=== PATIENT | female | born 1995 | race Caucasian/White ===

== ENCOUNTER 2017-07-14 19:50 | Emergency (ER) | payer OTHER ==
[2017-07-14 21:07] LABS: ADD MAN DIFF? NO
[2017-07-14 21:10] LABS: WHITE BLOOD COUNT 10.6 10^3/ul (4.8-10.8)
[2017-07-14 21:10] LABS: BASOPHILS % 0.3 % (0.0-2.0); EOSINOPHILS # 0.2 10^3/ul (0.0-0.5); EOSINOPHILS % 1.4 % (0.0-7.0); HEMATOCRIT 41.4 % (37.0-47.0); HEMOGLOBIN 14.4 g/dl (12.0-16.0); LYMPHOCYTES # 3.3 10^3/ul (0.8-2.9); LYMPHOCYTES % 30.8 % (18.0-55.0); MEAN CORPUSCULAR HEMOGLOBIN 30.8 pg (29.0-33.0); MEAN CORPUSCULAR HGB CONC 34.8 g/dl (32.0-37.0); MEAN CORPUSCULAR VOLUME 88.7 fl (72.0-104.0); MONOCYTE # 0.7 10^3/ul (0.3-0.9); MONOCYTES % 6.4 % (0.0-13.0); NEUTROPHIL # 6.5 10^3/ul (1.6-7.5); NEUTROPHILS % 60.8 % (30.0-74.0); PLATELET COUNT 203 10^3/UL (140-415); RED BLOOD COUNT 4.67 10^6/ul (4.20-5.40)
[2017-07-14 21:26] LABS: ADD UMIC YES; UR ASCORBIC ACID NEGATIVE (NEGATIVE); UR BILIRUBIN (Dip) NEGATIVE (NEGATIVE); UR BLOOD (Dip) 3+ mg/dL (NEGATIVE); UR CLARITY SLIGHTLY CLOUDY (CLEAR); UR COLOR YELLOW (YELLOW); UR GLUCOSE (Dip) NEGATIVE (NEGATIVE); UR KETONES (Dip) TRACE mg/dL (NEGATIVE); UR LEUKOCYTE ESTERASE (Dip) TRACE Leu/ul (NEGATIVE); UR NITRITE (Dip) NEGATIVE (NEGATIVE); UR RBC 182 /HPF (0-5); UR SPECIFIC GRAVITY (Dip) 1.025 (1.003-1.030); UR SQUAMOUS EPITHELIAL CELL FEW /HPF (FEW); UR TOTAL PROTEIN (Dip) 1+ mg/dl (NEGATIVE); UR UROBILINOGEN (Dip) NEGATIVE (NEGATIVE); UR WBC 13 /HPF (0-5)
[2017-07-14] MEDS: LIDOCAINE 1% (MDV) 10 ML INJ INFIL (21:49)
[2017-07-14] MEDS: CEFTRIAXONE 1 GM INJ IM (21:49)
[2017-07-14] MEDS: ONDANSETRON (ODT) 4 MG TAB ODT (22:14)
== END 2017-07-14 23:54 | disposition home or self-care (01) ==
LOC: FTE 19:50
DX: O23.41 Unspecified infection of urinary tract in pregnancy, first trimester (principal); R10.2 Pelvic and perineal pain; Z3A.12 12 weeks gestation of pregnancy
CPT/HCPCS: 36415; 76801; 81001; 84702; 85025; 86900; 86901; 96372; 99285-25

== ENCOUNTER 2018-01-22 18:44 | Outpatient (CLI) | payer OTHER ==
[2018-01-22 21:19] LABS: ADD UMIC YES; UR ASCORBIC ACID NEGATIVE (NEGATIVE); UR BILIRUBIN (Dip) NEGATIVE (NEGATIVE); UR BLOOD (Dip) NEGATIVE (NEGATIVE); UR CALCIUM OXALATE CRYSTAL MANY /HPF (NONE SEEN); UR CLARITY CLOUDY (CLEAR); UR COLOR YELLOW (YELLOW); UR GLUCOSE (Dip) NEGATIVE (NEGATIVE); UR KETONES (Dip) NEGATIVE (NEGATIVE); UR LEUKOCYTE ESTERASE (Dip) TRACE Leu/ul (NEGATIVE); UR NITRITE (Dip) NEGATIVE (NEGATIVE); UR RBC 1 /HPF (0-5); UR SPECIFIC GRAVITY (Dip) 1.032 (1.003-1.030); UR SQUAMOUS EPITHELIAL CELL MODERATE /HPF (FEW); UR TOTAL PROTEIN (Dip) 1+ mg/dl (NEGATIVE); UR UROBILINOGEN (Dip) 1+ mg/dL (NEGATIVE); UR WBC 6 /HPF (0-5)
== END 2018-01-22 21:05 | disposition home or self-care (01) ==
LOC: OBT 18:44 → L-D 18:45 → OBT 21:05
DX: O48.0 Post-term pregnancy (principal); Z3A.40 40 weeks gestation of pregnancy
CPT/HCPCS: 76815; 76818; 81001

== ENCOUNTER 2018-01-25 17:34 | Inpatient (IN) | payer OTHER ==
[2018-01-25] MEDS ORDERED: MISOPROSTOL 200 MCG TAB PR (18:00)
[2018-01-25] MEDS ORDERED: OXYTOCIN 30 UNITS/LR 500 ML IV ×2 (18:00)
[2018-01-25] MEDS ORDERED: METHYLERGONOVINE 0.2 MG INJ IM (18:00)
[2018-01-25] MEDS ORDERED: CARBOPROST 250 MCG INJ IM (18:00)
[2018-01-25] MEDS ORDERED: AMPICILLIN 2 GM/NS (PMX) 100 ML IVPB (18:00)
[2018-01-25] MEDS ORDERED: LIDOCAINE 1% (MPF) 30 ML INJ INJ (18:00)
[2018-01-25] MEDS: LACTATED RINGER'S 1,000 ML IV (18:10)
[2018-01-25 19:37] LABS: ADD MAN DIFF? NO
[2018-01-25 19:39] LABS: WHITE BLOOD COUNT 9.2 10^3/ul (4.8-10.8)
[2018-01-25 19:39] LABS: BASOPHILS % 0.2 % (0.0-2.0); EOSINOPHILS # 0.1 10^3/ul (0.0-0.5); EOSINOPHILS % 1.3 % (0.0-7.0); HEMATOCRIT 33.4 % (37.0-47.0); HEMOGLOBIN 10.8 g/dl (12.0-16.0); LYMPHOCYTES # 2.1 10^3/ul (0.8-2.9); LYMPHOCYTES % 23.2 % (15.0-51.0); MEAN CORPUSCULAR HEMOGLOBIN 28.3 pg (29.0-33.0); MEAN CORPUSCULAR HGB CONC 32.3 g/dl (32.0-37.0); MEAN CORPUSCULAR VOLUME 87.7 fl (82.0-101.0); MEAN PLATELET VOLUME 10.7 fl (7.4-10.4); MONOCYTE # 0.8 10^3/ul (0.3-0.9); MONOCYTES % 8.6 % (0.0-11.0); NEUTROPHIL # 6.1 10^3/ul (1.6-7.5); NEUTROPHILS % 66.2 % (39.0-77.0); PLATELET COUNT 222 10^3/UL (140-415); RED BLOOD COUNT 3.81 10^6/ul (4.20-5.40); RED CELL DISTRIBUTION WIDTH 14.6 % (11.5-14.5)
[2018-01-25 19:58] LABS: INR 0.93; PROTIME 12.5 Sec (11.9-14.9)
[2018-01-25 19:59] LABS: PARTIAL THROMBOPLASTIN TIME 27.3 Sec (23.0-35.0)
[2018-01-25] MEDS ORDERED: MINERAL OIL LIGHT 10 ML VIAL TOP (20:00)
[2018-01-25 20:29] LABS: HEPATITIS B SURFACE ANTIGEN NEGATIVE (NEGATIVE)
[2018-01-25] MEDS: OXYTOCIN 30 UNITS/LR 500 ML IV (20:35)
[2018-01-25] MEDS ORDERED: AMPICILLIN 1 GM/NS (PMX) 50 ML IVPB (21:00)
[2018-01-26] MEDS: LACTATED RINGER'S 1,000 ML IV ×4 (02:02→07:44)
[2018-01-26] MEDS ORDERED: FENTAnyl 2MCG/ML-ROPIV 0.2% 100 ML (05:13)
[2018-01-26] MEDS ORDERED: NALOXONE (0.4 MG/ML) INJ IV (05:30)
[2018-01-26] MEDS ORDERED: DIPHENHYDRAMINE 50 MG INJ IV (05:30)
[2018-01-26] MEDS ORDERED: ONDANSETRON 4 MG INJ IV ×2 (05:30→15:30)
[2018-01-26] MEDS ORDERED: FENTAnyl 2MCG/ML-ROPIV 0.2% 100 ML BAG EPI (05:30)
[2018-01-26] MEDS ORDERED: LIDOCAINE 0.5% (SDV) 50 ML INJ INFIL (10:30)
[2018-01-26] MEDS: OXYTOCIN 30 UNITS/LR 500 ML IV ×2 (12:31→16:34)
[2018-01-26] MEDS ORDERED: HYDROCODONE/APAP (5/325) TAB PO ×2 (15:30)
[2018-01-26] MEDS ORDERED: ACETAMINOPHEN 325 MG TAB PO (15:30)
[2018-01-26] MEDS ORDERED: OXYCODONE/ASPIRIN (4.88/325) TAB PO ×2 (15:30)
[2018-01-26 15:38] LABS: RAPID PLASMA REAGIN NONREACTIVE (NR)
[2018-01-26] MEDS: BENZOCAINE 20% 56 ML SPRAY TOP (16:32)
[2018-01-26] MEDS: WITCH HAZEL/GLYCERIN PAD PR (16:32)
[2018-01-26] MEDS: IBUPROFEN 600 MG TAB PO ×2 (17:40→23:25)
[2018-01-26] MEDS: SENNA/DOCUSATE NA (8.6MG/50MG) TAB PO (22:10)
[2018-01-27] MEDS: IBUPROFEN 600 MG TAB PO ×3 (05:38→18:09)
[2018-01-27 07:27] LABS: ADD MAN DIFF? NO
[2018-01-27 07:41] LABS: BASOPHILS % 0.3 % (0.0-2.0); EOSINOPHILS # 0.1 10^3/ul (0.0-0.5); EOSINOPHILS % 1.2 % (0.0-7.0); HEMATOCRIT 30.5 % (37.0-47.0); HEMOGLOBIN 9.8 g/dl (12.0-16.0); LYMPHOCYTES # 2.4 10^3/ul (0.8-2.9); LYMPHOCYTES % 23.4 % (15.0-51.0); MEAN CORPUSCULAR HGB CONC 32.1 g/dl (32.0-37.0); MEAN CORPUSCULAR VOLUME 87.1 fl (82.0-101.0); MEAN PLATELET VOLUME 10.6 fl (7.4-10.4); MONOCYTE # 0.8 10^3/ul (0.3-0.9); MONOCYTES % 7.4 % (0.0-11.0); NEUTROPHILS % 67.1 % (39.0-77.0); PLATELET COUNT 195 10^3/UL (140-415); RED CELL DISTRIBUTION WIDTH 14.8 % (11.5-14.5)
[2018-01-27 07:41] LABS: WHITE BLOOD COUNT 10.4 10^3/ul (4.8-10.8)
[2018-01-27] MEDS: SENNA/DOCUSATE NA (8.6MG/50MG) TAB PO ×2 (08:50→21:40)
[2018-01-27] MEDS: LANOLIN 7 GM TUBE TOP (08:50)
[2018-01-28] MEDS: IBUPROFEN 600 MG TAB PO ×3 (00:19→11:39)
[2018-01-28] MEDS: MEASLES,MUMPS,RUBELLA VACCINE INJ SC* (09:00)
[2018-01-28] MEDS: SENNA/DOCUSATE NA (8.6MG/50MG) TAB PO (09:00)
== END 2018-01-28 15:18 | disposition home or self-care (01) | DRG 807 ==
LOC: L-D 17:34 → PP1 01-26 14:11
PROVIDERS: Obstetrics & Gynecology
PROC: 10E0XZZ Delivery of Products of Conception, External Approach (ICD-10-PCS; principal; 2018-01-26)
PROC: 0HQ9XZZ Repair Perineum Skin, External Approach (ICD-10-PCS; 2018-01-26)
DX: O69.81X0 Labor and delivery complicated by cord around neck, without compression, not applicable or unspecified (principal); Z37.0 Single live birth; O70.0 First degree perineal laceration during delivery; Z3A.41 41 weeks gestation of pregnancy
CPT/HCPCS: 62319; 76815; 85025; 85610; 85730; 86592; 86850; 86900; 86901; 87340; 99464